=== PATIENT | male | born 1995 | race Caucasian/White ===

== ENCOUNTER 2016-07-07 13:35 | Emergency (ER) | payer SELFPAY ==
[2016-07-07 13:39] VITALS: BP 139/81; PULSE 79; RESP 18; TEMP 97.9; O2SAT 97
== END 2016-07-07 15:11 | disposition left against medical advice (07) ==
LOC: NEPB 13:35
DX: Z04.1 Encounter for examination and observation following transport accident (principal)
CPT/HCPCS: 99281